=== PATIENT | male | born 1960 | race Caucasian/White ===

== ENCOUNTER → 2023-10-20 | Outpatient (CLI) | payer BC ==
[2023-10-20 16:58] LABS: BASO # 0.03 K/mm3 (0.02-0.10); EOS # 0.05 K/mm3 (0.04-0.40); EOS % 0.3 % (0.0-4.0); HEMATOCRIT 40.7 % (42.0-52.0); HEMOGLOBIN 13.6 g/dL (13.5-18.0); LYMPH# 1.55 K/mm3 (1.50-4.00); MEAN CELL VOLUME 93 fl (78-100); MEAN CORPUSCULAR HEMOGLOBIN 31 pg (27-31); MEAN CORPUSCULAR HGB CONC 33 g/dL (33-37); MEAN PLATELET VOLUME 8.9 fl (7.4-10.4); MONO # 1.29 K/mm3 (0.20-0.80); NEU # 15.16 K/mm3 (1.40-6.50); PLATELET COUNT 293 K/mm3 (130-400); RED BLOOD COUNT 4.37 M/mm3 (4.20-5.60); RED CELL DISTRIBUTION WIDTH 12.7 % (11.5-14.5); WHITE BLOOD COUNT 18.1 K/mm3 (4.8-10.8)
[2023-10-20 17:16] LABS: CALCIUM 9.1 mg/dL (8.3-10.5)
== END ==
LOC: LAB 16:44
PROVIDERS: Nurse Practitioner Family
DX: R10.9 Unspecified abdominal pain (principal)

== ENCOUNTER → 2023-10-26 | Outpatient (CLI) | payer BC ==
[2023-10-29 10:50] LABS: HEPATITIS C VIRUS ANTIBODY Negative (Negative)
== END ==
LOC: RAD 14:35
PROVIDERS: Family Medicine
DX: M25.512 Pain in left shoulder (principal)

== ENCOUNTER → 2023-11-08 | Outpatient (CLI) | payer BC | LOC: RAD 16:53 | DX: M75.52 Bursitis of left shoulder (principal); M75.112 Incomplete rotator cuff tear or rupture of left shoulder, not specified as traumatic; M19.012 Primary osteoarthritis, left shoulder ==

== ENCOUNTER → 2023-11-28 | Outpatient (CLI) | payer BC ==
[2023-11-28 18:54] LABS: PH-URINE 5.5 (5.0 - 8.0); URINE APPEARANCE CLOUDY (CLEAR); URINE BILIRUBIN NEGATIVE (NEGATIVE); URINE BLOOD 2+ (NEGATIVE); URINE COLOR DARK YELLOW (YELLOW); URINE GLUCOSE NEGATIVE (NEGATIVE); URINE KETONE NEGATIVE (NEGATIVE); URINE NITRATE POSITIVE (NEGATIVE); URINE PROTEIN(semi-quant) 1+ (NEGATIVE)
[2023-11-28 18:55] LABS: URINE LEUKOCYTE ESTERASE 2+ (NEGATIVE)
[2023-11-28 18:59] LABS: URINE WBC >50 /hpf (0-3)
== END ==
LOC: LAB 16:50
PROVIDERS: Family Medicine
DX: R82.998 Other abnormal findings in urine (principal)

== ENCOUNTER → 2024-02-15 | Outpatient (CLI) | payer BC ==
[~2024-02-15] MED LIST: FLOMAX0.4 MG PO
[2024-02-15 11:31] LABS: BASO # 0.05 K/mm3 (0.02-0.10); EOS % 2.2 % (0.0-4.0); HEMATOCRIT 40.3 % (42.0-52.0); HEMOGLOBIN 12.9 g/dL (13.5-18.0); LYMPH# 1.44 K/mm3 (1.50-4.00); MEAN CELL VOLUME 94 fl (78-100); MEAN CORPUSCULAR HEMOGLOBIN 30 pg (27-31); MEAN CORPUSCULAR HGB CONC 32 g/dL (33-37); MEAN PLATELET VOLUME 9.5 fl (7.4-10.4); MONO # 0.76 K/mm3 (0.20-0.80); PLATELET COUNT 315 K/mm3 (130-400); RED CELL DISTRIBUTION WIDTH 13.6 % (11.5-14.5); WHITE BLOOD COUNT 9.3 K/mm3 (4.8-10.8)
[2024-02-15 11:40] LABS: ALBUMIN 3.6 g/dL (3.4-4.8)
[2024-02-15 11:41] LABS: CALCIUM 9.3 mg/dL (8.3-10.5)
[2024-02-15 11:42] LABS: TOTAL PROTEIN 7.1 g/dL (6.2-8.1)
[2024-02-15 11:44] LABS: TOTAL BILIRUBIN 1.2 mg/dL (0.2-1.2)
== END ==
LOC: LAB 11:09
PROVIDERS: Family Medicine
DX: N17.9 Acute kidney failure, unspecified (principal); A41.51 Sepsis due to Escherichia coli [E. coli]

== ENCOUNTER → 2024-08-14 | Outpatient (CLI) | payer BC | LOC: LAB 14:56 | DX: N30.01 Acute cystitis with hematuria (principal) ==

== ENCOUNTER → 2024-10-30 | Outpatient (CLI) | payer BC | LOC: LAB 16:36 | DX: Z12.5 Encounter for screening for malignant neoplasm of prostate (principal); E78.41 Elevated Lipoprotein(a) ==

== ENCOUNTER → 2024-11-07 | Outpatient (CLI) | payer BC | LOC: RAD 08:31 | DX: Z13.6 Encounter for screening for cardiovascular disorders (principal) ==